=== PATIENT | female | born 1990 | race Caucasian/White ===

== ENCOUNTER 2021-07-07 06:04 | Emergency (ER) | payer OTHER, SELFPAY ==
[2021-07-07] VITALS (8 sets, daily range): BP systolic 103–120; BP diastolic 62–79; PULSE 76–96; RESP 12–20; TEMP 36.9; O2SAT 99–100
--- NOTE | ~2021-07-07 | XR_ITS ---
EXAMINATION: XR chest 2V DATE: 07/07/2021 06:32 INDICATION: Left-sided midsternal chest pain TECHNIQUE: PA and lateral views of the chest were obtained. COMPARISON: Chest radiograph dated 06/11/2018 FINDINGS: The lungs are clear with no focal airspace opacities, pulmonary edema, pleural effusion or pneumothor ax. The cardiomediastinal silhouette is normal. Visualized bones and soft tissues are unremarkable. IMPRESSION: 1. Normal chest radiograph. Reviewed, dictated and finalized at location A. IMPRESSION: 1. Normal chest radiograph.
--- NOTE | 2021-07-07 06:06 | ECG_ITS ---
Measurements Intervals [place] Rate: 85 P: 52 ME: 178 QRS: 57 QRSD: 82 T: 25 QT: 353 QTc: 420 Interpretive Statements SINUS RHYTHM NORMAL ECG Electronically Signed On 07-07-2021 7:06:19 CDT by Forrest Turcios D.O.
--- NOTE | 2021-07-07 06:27 | PC.NURSE ---
Pt to imaging at this time.
[2021-07-07 06:53] LABS: Basophils Absolute Auto 0.1 K/mm3 (0.0-0.1); Basophils Percent Auto 0.9 % (0.2-1.2); Eosinophils Absolute Auto 0.3 K/mm3 (0-0.3); Eosinophils Percent Auto 4.9 % (0-4.4); Hematocrit 49.6 % (37.0-47.0); Hemoglobin 16.5 g/dL (12.0-15.0); Immature Granulocyte Absolute 0.01 K/mm3 (0.00-0.031); Immature Granulocyte Percent A 0.1 % (0-0.5); Lymphocytes Absolute Auto 2.96 K/mm3 (0.9-3.2); Mean Corpuscular HGB Conc 33.3 g/dl (32-36); Mean Corpuscular Hemoglobin 28.5 pg (26-34); Mean Corpuscular Volume 85.8 fl (80-100); Mean Platelet Volume 10.9 fl (7.4-10.4); Monocytes Absolute Auto 0.5 K/mm3 (0.1-0.6); Monocytes Percent Auto 7.1 % (2.6-8.5); Platelet Count Result 240 k/mm3 (150-375); Red Blood Count 5.78 M/mm3 (4.2-5.4); Red Cell Distribution Width 12.5 % (11.5-14.5); White Blood Count 6.9 K/mm3 (4.5-10.0)
[2021-07-07 07:00] LABS: Anion Gap 7 mmol/L (8-16); Blood Urea Nitrogen 15 mg/dL (7-17); Calcium 9.7 mg/dL (8.4-10.2); Carbon Dioxide 27 mmol/L (22-30); Chloride 106 mmol/L (98-107); Estimated CRCL calculation 81 ml/min; Estimated Glomerular Filt Rate > 60; Glucose 94 mg/dL (65-110); Potassium 3.5 mmol/L (3.4-5.0); Sodium 140 mmol/L (137-145)
[2021-07-07 07:02] LABS: INR 0.8; Prothrombin Time 11.3 Seconds (11.1-14.7)
[2021-07-07 07:13] LABS: Troponin I < 0.012 ng/mL (0.000-0.034)
--- NOTE | 2021-07-07 07:28 | ED.CHESTPAIN ---
HPI - Chest Pain General Chief Complaint: Chest Pain Stated Complaint: chest pains Time Seen by Provider: 07/07/21 07:04 Source: patient and RN notes reviewed Mode of arrival: ambulatory Limitations: no limitations History of Present Illness HPI narrative: This is a 31 year old female with history of anxiety who presents for evaluation of chest pain. Patient reports she has been waking up with chest pain all week. She reports sharp pain located left anterior chest and midsternal. She normally takes Xanax 0.25 mg in the morning, and this makes her pain go away. Today she reports her pain was more severe but she did not take a Xanax today. She denies associated shortness of breath, nausea, vomiting, cough or fever. She denies leg swelling or pain. She reports pain 04/19. Related Data Home Medications Medication Instructions Recorded Confirmed norethindrone-e.estradiol-iron tablet 07/07/21 [Aurovela Fe 1-20 (28)] Allergies Allergy/AdvReac Type Severity Reaction Status Date / Time sulfamethoxazole AdvReac Severe Nausea and Verified 07/07/21 06:15 Vomiting trimethoprim AdvReac Severe Nausea and Verified 07/07/21 06:15 Vomiting Review of Systems Review of Systems: All systems reviewed & are unremarkable except as noted in HPI and below PMFSH Past Medical History Medical History (Updated 07/07/21 @ 10:26 by Myriam Bradley MD) Anxiety disorder, unspecified BMI 24.0-24.9, adult Mixed irritable bowel syndrome Surgical History Surgical History (Updated 07/07/21 @ 07:30 by Myriam Bradley MD) No pertinent past surgical history Family History Family History Grandparent Hypertension Diabetes mellitus Social History Social History Smoking status: Never smoker Second hand tobacco smoke exposure: No Alcohol intake: current Substance use: never Substance use type: does not use Exam Const: General: no acute distress and alert Orientation/consciousness: patient oriented x3 Eyes: EOM: EOMs intact bilaterally Chest: Chest palpation & inspection: tenderness sternum and costochondral junction Resp: Effort & Inspection: normal respiratory effort and no retractions Auscultation: clear to auscultation bilaterally Cardio: Rate: regular rate Rhythm: regular rhythm Heart sounds: no murmurs GI: GI Palp: Yes Soft to palpation, No Tenderness to palpation present (GI) and No Guarding due to palpation present (GI) Auscultation: normal bowel sounds Skin: General skin exam: normal color Rashes: no rashes Neuro: General: patient oriented x3, moves all extremities and CN's II-XI intact bilaterally Psych: Appearance: grossly normal and well kempt Mental Status: mental status grossly normal Affect: normal affect Course Reevaluation(s) Reevaluation #1: Patient states she feels much better. I discussed her evaluation has been unremarkable in ER . She will follow up with PCP. Date: 07/07/21 Time: 10:24 Vital Signs Vital signs: Vital Signs Temperature 98.5 F 07/07/21 06:08 Pulse Rate 93 07/07/21 06:08 Respiratory Rate 16 07/07/21 06:08 Blood Pressure 120/79 07/07/21 06:08 Pulse Oximetry 100 07/07/21 06:08 Temperature 98.5 F 07/07/21 06:08 Pulse Rate 78 07/07/21 10:38 Respiratory Rate 20 07/07/21 10:38 Blood Pressure 108/70 07/07/21 10:38 Pulse Oximetry 99 07/07/21 10:38 MDM - Chest Pain Lab Data Attestation: I reviewed the patient's lab results. Result diagrams: 07/07/21 06:42 07/07/21 06:42 Labs: Lab Results 07/07/21 07/07/21 07/07/21 Range/Units 06:42 06:42 06:42 WBC 6.9 (4.5-10.0) K/mm3 RBC 5.78 H (4.2-5.4) M/mm3 Hgb 16.5 H (12.0-15.0) g/dL Hct 49.6 H (37.0-47.0) % MCV 85.8 (80-100) fl MCH 28.5 (26-34) pg MCHC 33.3 (32-36) g/dl RDW 12.5
[2021-07-07] MEDS: KETOROLAC 15 MG/ML VIAL (*BKC) IV PUSH (07:34)
[2021-07-07] MEDS: ALPRAZolam (*CRX) 0.25 MG TABLET PO (07:35)
[2021-07-07 07:39] LABS: Partial Thromboplastin Time 23.4 SECONDS (22.3-36.8)
--- NOTE | 2021-07-07 07:53 | PC.NURSE ---
Spoke to Nicolasa in lab at 07:54 to add on D Dimer
[2021-07-07 08:05] LABS: D Dimer 0.29 ug/mL (<0.48)
[2021-07-07 10:09] LABS: Troponin I < 0.012 ng/mL (0.000-0.034)
== END 2021-07-07 10:39 | disposition home or self-care (01) ==
PROVIDERS: Emergency Medicine; Emergency Provider General Practice; PCP Family Medicine
DX: R07.89 Other chest pain (principal); K58.2 Mixed irritable bowel syndrome; F41.9 Anxiety disorder, unspecified
CPT/HCPCS: 36415; 71046; 80048; 84484; 85025; 85380; 85610; 85730; 93005; 96374; 99284; A9270; J1885

== ENCOUNTER 2021-07-17 15:35 | Emergency (ER) | payer OTHER, SELFPAY ==
[2021-07-17 15:44] VITALS: BP 106/82; PULSE 101; RESP 18; TEMP 36.4; O2SAT 100
--- NOTE | 2021-07-17 16:17 | ED.FEMALEGU ---
HPI - Female Genitourinary General Chief complaint: Urogenital-Female Stated complaint: UTI Source: patient and RN notes reviewed Limitations: no limitations History of Present Illness HPI Narrative: The patient, who is on several mood meds, presents with urinary symptoms. Patient states she has a shorter, 1 morning history of urinary frequency and dysuria. No fever, low back pain, vomiting, blood, urgency, vaginal discharge-she declines STI testing and risk factors. Symptoms are mild, most noticeable with micturition Related Data Home Medications Medication Instructions Recorded Confirmed norethindrone-e.estradiol-iron 1 tablet PO DAILY 07/07/21 07/17/21 [Aurovela Fe 1-20 (28)] topiramate 50 mg PO PRN PRN 07/17/21 07/17/21 Allergies Allergy/AdvReac Type Severity Reaction Status Date / Time sulfamethoxazole AdvReac Severe Nausea and Verified 07/17/21 15:52 Vomiting trimethoprim AdvReac Severe Nausea and Verified 07/17/21 15:52 Vomiting Review of Systems Review of Systems: General/Constitutional: No weight loss,fever Eyes: N0: Redness,discharge Ears/Nose/Throat: No: Epistaxis,ear discharge Respiratory: Denies: Hemoptysis Gastrointestinal: No Vomiting, Bleeding-rectal Skin: No Lumps, eruption Neurologic: No Focal Weakness,Sz Hematologic: Denies: Petechiae/Purpura Psychiatric: No: Suicida ideationl All Other Systems: Reviewed and Negative [facility], [facility] Past Medical History Medical History Anxiety disorder, unspecified BMI 24.0-24.9, adult Mixed irritable bowel syndrome Surgical History Surgical History No pertinent past surgical history Family History Family History Grandparent Hypertension Diabetes mellitus Social History Social History Second hand tobacco smoke exposure: No Alcohol intake: current Drinks per week: 2 Substance use: never Substance use type: does not use Gender identity (if verbalized by the patient): Female Sexual Orientation (if Verbalized by the Patient): Straight or Heterosexual Spiritual care concerns: No Agree to blood products: Yes Comments At time of signature, agree with nursing past medical, surgical, social and family history. There is no relevant family history pertinent to the presenting complaint Exam Narrative: General Appearance: Well appearing, No distress EYE: PERRLA, Conjunctiva clear Ears: External ear normal Nose: Normal nose Mouth/Throat: Normal appearing, Normal lips Neck: Supple Respiratory: Airway patent, No respiratory distress Cardiovascular: RRR Abdomen: Soft, Non-tender, Musculoskeletal: Full ROM Skin: Warm, Dry Neurological: A&O x3, CN II-X intact Psychiatric: Normal mood, Normal affect Course Vital Signs Vital signs: Vital Signs Temperature 97.6 F 07/17/21 15:44 Pulse Rate 101 H 07/17/21 15:44 Respiratory Rate 18 07/17/21 15:44 Blood Pressure 106/82 07/17/21 15:44 Pulse Oximetry 100 07/17/21 15:44 Temperature 97.6 F 07/17/21 15:44 Pulse Rate 101 H 07/17/21 15:44 Respiratory Rate 18 07/17/21 15:44 Blood Pressure 106/82 07/17/21 15:44 Pulse Oximetry 100 07/17/21 15:44 MDM - Female Genitourinary Lab Data Labs: Urine Glucose Negative Reference Range: Negative Urine Bilirubin Negative Reference Range: Negative Urine Ketone Negative Reference Range: Negative Urine Specific [place] 1.025 Reference Range:1.001-1.035 Urine Blood Negative
== END 2021-07-17 16:26 | disposition home or self-care (01) ==
PROVIDERS: Emergency Provider Emergency Medicine; PCP Family Medicine
DX: N30.90 Cystitis, unspecified without hematuria (principal)
CPT/HCPCS: 81003; 99213; G0463

== ENCOUNTER 2022-11-05 10:08 | Emergency (ER) | payer OTHER, SELFPAY ==
[2022-11-05 10:23] VITALS: BP 133/74; PULSE 113; RESP 20; TEMP 36.9; O2SAT 100
[2022-11-05 11:01] LABS: Basophils Absolute Auto 0.1 K/mm3 (0.0-0.1); Basophils Percent Auto 0.7 % (0.2-1.2); Eosinophils Absolute Auto 0.3 K/mm3 (0-0.3); Hematocrit 47.9 % (37.0-47.0); Hemoglobin 15.8 g/dL (12.0-15.0); Immature Granulocyte Absolute 0.03 K/mm3 (0.00-0.031); Immature Granulocyte Percent A 0.3 % (0-0.5); Lymphocytes Absolute Auto 2.66 K/mm3 (0.9-3.2); Lymphocytes Percent Auto 25.7 % (18.3-44.2); Mean Corpuscular Hemoglobin 28.6 pg (26-34); Mean Corpuscular Volume 86.8 fl (80-100); Mean Platelet Volume 10.3 fl (7.4-10.4); Monocytes Absolute Auto 0.4 K/mm3 (0.1-0.6); Neutrophils Absolute Auto 6.9 K/mm3 (1.3-6.7); Neutrophils Percent Auto 66.3 % (45.5-73.1); Platelet Count Result 233 k/mm3 (150-375); Red Blood Count 5.52 M/mm3 (4.2-5.4); Red Cell Distribution Width 13.6 % (11.5-14.5); White Blood Count 10.4 K/mm3 (4.5-10.0)
[2022-11-05 11:12] LABS: Alanine Aminotransferase 56 U/L (6-35); Albumin Level 4.7 g/dL (3.5-5.1); Alkaline Phosphatase 91 U/L (38-126); Anion Gap 4 mmol/L (8-16); Aspartate Amino Transferase 84 U/L (14-36); Bilirubin,Total 0.4 mg/dL (0.2-1.3); Blood Urea Nitrogen 13 mg/dL (7-17); Calcium 9.1 mg/dL (8.4-10.2); Carbon Dioxide 29 mmol/L (22-30); Chloride 101 mmol/L (98-107); Estimated CRCL calculation 66 ml/min; Estimated Glomerular Filt Rate 58; Glucose 89 mg/dL (65-110); Lipase 97 U/L (23-300); Potassium 3.5 mmol/L (3.4-5.0); Sodium 134 mmol/L (137-145)
[2022-11-05 11:27] LABS: Add Urine Microscopic? YES; Appearance Urine Slightly Cloudy (Clear); Bilirubin Urine 1+ (Negative); Blood Urine Negative (Negative); Color Urine Light Yellow (Yellow); Glucose Urine UA Negative (Negative); Ketones Urine 2+ mg/dL (Negative); Leukocyte Esterase Ur Trace LEU/UL (Negative); Nitrate Urine Negative (Negative); Protein Urine Negative (Negative); Urobilinogen Urine 0.2 mg/dL (<2.0)
[2022-11-05 11:29] LABS: Bacteria Urine Trace /hpf; Mucus Urine Rare /lpf; RBC Urine 0-2 /hpf (0-2); Squamous Epithelial Cell Urine Many /hpf (Few); WBC Urine 0-3 /hpf
--- NOTE | 2022-11-05 13:07 | PC.NURSE ---
pt. family member up to front end developer x2 reporting pt. pain with terrible. pt. family states we keep seeing people pulled back before her and we were here first. RN educated pt. family member triage is not based off of first come first sever. Pt. family member walked away and reported to daughter they don't care Pt. ambulated out of ed w. steady gait, no signs of distress.
== END 2022-11-05 13:36 | disposition left against medical advice (07) ==
PROVIDERS: Emergency Provider Family Medicine; PCP Family Medicine
DX: R10.9 Unspecified abdominal pain (principal)
CPT/HCPCS: 36415; 80053; 81001; 81025; 83690; 85025; 99199

== ENCOUNTER 2023-05-28 11:21 | Emergency (ER) | payer OTHER, SELFPAY ==
[2023-05-28 11:29] VITALS: BP 106/75; PULSE 103; RESP 16; TEMP 35.9; O2SAT 100
--- NOTE | 2023-05-28 11:50 | ED.SKABFB ---
HPI - Skin/Abscess/Foreign Bdy General Chief complaint: Eye Problems Stated complaint: Rt Eye Irritation Time Seen by Provider: 05/28/23 11:38 Source: patient and RN notes reviewed Mode of arrival: ambulatory Limitations: no limitations History of Present Illness HPI narrative: Patient presents today complaining a painful bump below the medial aspect of her right eyebrow x2 weeks that has progressively gotten larger, more red and painful. She has been applying ice without relief. She currently rates her pain 10. Related Data Allergies Allergy/AdvReac Type Severity Reaction Status Date / Time sulfamethoxazole AdvReac Intermediate Nausea and Verified 05/28/23 11:29 Vomiting trimethoprim AdvReac Intermediate Nausea and Verified 05/28/23 11:29 Vomiting Review of Systems Review of Systems: CONSTITUTIONAL: Denies body aches, fever, chills, or sweats. EYES: Denies visual changes, redness, or discharge. ENT: Denies rhinorrhea, congestion, sore throat, or otalgia. CARDIOVASCULAR: Denies chest pain, palpitations, or edema. RESPIRATORY: Denies cough or dyspnea. GASTROINTESTINAL: Denies abdominal pain, nausea, vomiting, or diarrhea. GENITOURINARY: Denies dysuria or hematuria. SKIN: + lump to right eyebrow MUSCULOSKELETAL: Denies back pain, joint pain, or myalgia. NEUROLOGIC: Denies headache, numbness, tingling, or weakness. PSYCH: Denies depression or anxiety. [facility] Past Medical History Medical History Anxiety disorder, unspecified BMI 24.0-24.9, adult COVID-19 Mixed irritable bowel syndrome Surgical History Surgical History No pertinent past surgical history Family History Family History Grandparent Hypertension Diabetes mellitus Father Diabetes mellitus COVID-19 Mother Migraine headache COVID-19 Sibling COVID-19 Social History Social History Smoking status: Never smoker Second hand tobacco smoke exposure: No Alcohol intake: current Drinks per week: 2 Substance use: never Substance use type: does not use Living arrangements: with family 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 Please see nursing chart for further information. There is no relevant family history pertinent to the presenting complaint Exam Narrative: GENERAL: Well-appearing, well-nourished, and in no acute distress. HEAD: Normocephalic, atraumatic. EYES: EOMI. No redness or drainage. Conjunctivae normal. ENT: Mucous membranes pink and moist. NECK: Normal AROM. CHEST: No respiratory distress. EXTREMITIES: Normal range of motion. No edema. SKIN: Warm, dry, no rash. Capillary refill normal. Normal skin turgor. 0.5 cm round fluctuant nodule below the medial aspect of the right eyebrow with surrounding erythema and induration. Tender palpation. NEURO: No focal deficits. Alert and oriented x3. Gait steady. PSYCH: Normal affect. No signs of depression or anxiety. Course Course Level of Care: Express Care Visit Vital Signs Vital signs: Vital Signs Temperature 96.7 F L 05/28/23 11:29 Pulse Rate 103 H 05/28/23 11:29 Respiratory Rate 16 05/28/23 11:29 Blood Pressure 106/75 05/28/23 11:29 Pulse Oximetry 100 05/28/23 11:29 Oxygen Delivery Room Air 05/28/23 11:29 Temperature 96.7 F L 05/28/23 11:29 Pulse Rate 103 H 05/28/23 11:29 Respiratory Ra
== END 2023-05-28 11:56 | disposition home or self-care (01) ==
PROVIDERS: Emergency Provider Nurse Practitioner; PCP Family Medicine
DX: L02.01 Cutaneous abscess of face (principal); Z86.16 Personal history of COVID-19
CPT/HCPCS: 10060; 99213; G0463

== ENCOUNTER 2023-07-25 13:49 | Emergency (ER) | payer OTHER, SELFPAY ==
[2023-07-25 13:56] VITALS: BP 115/68; PULSE 103; RESP 18; TEMP 36.5; O2SAT 100
--- NOTE | 2023-07-25 14:09 | ED.URI ---
HPI - URI/Sore Throat General Chief Complaint: Upper Respiratory Infection Stated Complaint: Sore Throat Time Seen by Provider: 07/25/23 14:09 Source: patient Mode of arrival: ambulatory Limitations: no limitations History of Present Illness HPI Narrative: 33-year-old female presents with complaint of sore throat, headache, fatigue, body aches for 2-3 days. Highest fever 102 F. Denies nausea vomiting diarrhea. All systems reviewed and negative except as noted above. Related Data Allergies Allergy/AdvReac Type Severity Reaction Status Date / Time sulfamethoxazole AdvReac Intermediate Nausea and Verified 07/25/23 14:16 Vomiting trimethoprim AdvReac Intermediate Nausea and Verified 07/25/23 14:16 Vomiting Review of Systems Review of Systems: CONSTITUTIONAL: reports fever, chills, or sweats. EYES: Denies visual changes, redness, or discharge. ENT: Denies rhinorrhea, congestion . Reports sore throat. Denies otalgia. CARDIOVASCULAR: Denies chest pain, palpitations, or edema. RESPIRATORY: Denies cough or dyspnea. GASTROINTESTINAL: Denies abdominal pain, nausea, vomiting, or diarrhea. GENITOURINARY: Denies dysuria or hematuria. SKIN: Denies rash or itching. MUSCULOSKELETAL: Denies back pain, joint pain, or myalgia. NEUROLOGIC: Denies headache, numbness, or weakness. PSYCHIATRIC: Denies anxiety or depression. All other systems reviewed are negative, except as documented in HPI. [facility] Past Medical History Medical History Anxiety disorder, unspecified BMI 24.0-24.9, adult COVID-19 Mixed irritable bowel syndrome Surgical History Surgical History No pertinent past surgical history Family History Family History Grandparent Hypertension Diabetes mellitus Father Diabetes mellitus COVID-19 Mother Migraine headache COVID-19 Sibling COVID-19 Social History Social History Smoking status: Never smoker Second hand tobacco smoke exposure: No Alcohol intake: current Drinks per week: 2 Substance use: never Substance use type: does not use Living arrangements: with family Occupation/Education: occupation 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 There is no relevant family history pertinent to the presenting complaint. Exam Narrative: GENERAL: This is a well-nourished, well-developed patient, in no apparent distress. HEAD: normocephalic, atraumatic. EYES: PERRL. Sclera clear/white. Vision is grossly intact. EARS: External ears normal, auditory canals clear and without drainage, TMs normal without perforation. Hearing grossly intact. NOSE: External nose normal with no obvious nasal discharge, nares without redness, no rhinorrhea. THROAT: Mucous membranes moist, mild erythema to posterior pharynx without swelling or exudates. NECK: Neck supple, non-tender without lymphadenopathy, masses or thyromegaly. CARDIOVASCULAR: Regular rate and rhythm without murmurs, gallops, or rubs. RESPIRATORY: Clear to auscultation. Breath sounds equal bilaterally. No wheezes, rales, or rhonchi. \ SKIN: warm, Dry, intact with no suspicious lesions or rash, good texture and turgor. NEURO: awake, alert, and oriented to person, place and time. There were no obvious focal neurologic abnormalities. EXTREMITIES: No joint tenderness, effusion, or edema noted. Course Course Level of Care: Express Care Visit Vital Signs Vital signs: Vital Signs Temper
== END 2023-07-25 14:34 | disposition home or self-care (01) ==
PROVIDERS: Emergency Provider Nurse Practitioner Family; PCP Family Medicine
DX: J02.0 Streptococcal pharyngitis (principal)
CPT/HCPCS: 87880; 99213; G0463

== ENCOUNTER 2024-03-24 10:10 | Emergency (ER) | payer OTHER, SELFPAY ==
--- NOTE | ~2024-03-24 | XR_ITS ---
EXAMINATION: XR chest 2V DATE: 03/24/2024 10:39 INDICATION: Chest pain TECHNIQUE: PA and lateral views of the chest were obtained. COMPARISON: Chest radiograph dated 07/07/2021 FINDINGS: The lungs are clear with no focal airspace opacities, pulmonary edema, pleural effusion or pneumothor ax. The cardiomediastinal silhouette is normal. Visualized bones and soft tissues are unremarkable. IMPRESSION: 1. No acute cardiopulmonary disease. Reviewed, dictated and finalized at location A.
--- NOTE | 2024-03-24 10:12 | ECG_ITS ---
SEE SCANNED COPY FOR CONFIRMED REPORT MTDD
[2024-03-24 10:15] VITALS: BP 118/80; PULSE 110; RESP 18; TEMP 36.4; O2SAT 100
[2024-03-24 10:35] LABS: Basophils Absolute Auto 0.1 K/mm3 (0.0-0.1); Basophils Percent Auto 0.6 % (0.2-1.2); Eosinophils Absolute Auto 0.4 K/mm3 (0-0.3); Eosinophils Percent Auto 3.7 % (0-4.4); Hematocrit 47.4 % (37.0-47.0); Hemoglobin 15.4 g/dL (12.0-15.0); Immature Granulocyte Absolute 0.02 K/mm3 (0.00-0.031); Immature Granulocyte Percent A 0.2 % (0-0.5); Lymphocytes Percent Auto 27.5 % (18.3-44.2); Mean Corpuscular HGB Conc 32.5 g/dl (32-36); Mean Corpuscular Hemoglobin 28.6 pg (26-34); Mean Corpuscular Volume 87.9 fl (80-100); Mean Platelet Volume 10.7 fl (7.4-10.4); Monocytes Absolute Auto 0.6 K/mm3 (0.1-0.6); Monocytes Percent Auto 5.8 % (2.6-8.5); Neutrophils Absolute Auto 6.1 K/mm3 (1.3-6.7); Neutrophils Percent Auto 62.2 % (45.5-73.1); Platelet Count Result 224 k/mm3 (150-375); Red Blood Count 5.39 M/mm3 (4.2-5.4); Red Cell Distribution Width 13.6 % (11.5-14.5); White Blood Count 9.8 K/mm3 (4.5-10.0)
[2024-03-24 11:00] LABS: INR 0.9; Prothrombin Time 12.9 Seconds (11.1-14.7)
[2024-03-24 11:01] LABS: Partial Thromboplastin Time 29.2 Seconds (22.3-36.8)
[2024-03-24 11:02] LABS: Alanine Aminotransferase 30 U/L (6-35); Albumin Level 4.5 g/dL (3.5-5.1); Alkaline Phosphatase 78 U/L (38-126); Anion Gap 6 mmol/L (4-12); Aspartate Amino Transferase 39 U/L (14-36); Bilirubin,Total 0.5 mg/dL (0.2-1.3); Blood Urea Nitrogen 15 mg/dL (7-17); Calcium 9.4 mg/dL (8.4-10.2); Carbon Dioxide 27 mmol/L (22-30); Chloride 105 mmol/L (98-107); Estimated CRCL calculation 85 ml/min; Estimated Glomerular Filt Rate > 60; Glucose 100 mg/dL (65-110); Lipase 126 U/L (23-300); Potassium 4.3 mmol/L (3.4-5.0); Sodium 138 mmol/L (137-145)
[2024-03-24 11:13] LABS: Troponin I < 0.012 ng/mL (0.000-0.034)
[2024-03-24 11:29] LABS: D Dimer 0.35 ug/mL (<0.48)
[2024-03-24 11:45] VITALS: BP 107/67; PULSE 84; RESP 16; TEMP 36.6; O2SAT 97
--- NOTE | 2024-03-24 11:45 | PC.NURSE ---
assumed care of pt from ryan del real. pt resting in stretcher, visitor at bedside. pt c/o 04/19 cp. updated on current status: waiting on additional lab work. pt verbalized no concerns at this time
--- NOTE | 2024-03-24 11:46 | ED.GENADULT ---
HPI - General Adult General Chief complaint: Chest Pain Stated complaint: chest pain Time Seen by Provider: 03/24/24 10:34 History of Present Illness HPI narrative: Celina Prabhakar is a 33 y/o female who presents today with reports of chest pain that started Friday- she states that it woke her up out of her sleep. CP is constant pressure over her left side of chest with intermittent sharp shooting pain on her left side of chest Denies SOB Denies any known Cardiac Hx, she states that she has had chest pain before and it usually is related to her anxiety and she took her xanax and it did not help her pain. Denies fever/ cough/ SOB/ sore throat/ nausea /vomiting Related Data Allergies Allergy/AdvReac Type Severity Reaction Status Date / Time sulfamethoxazole AdvReac Intermediate Nausea and Verified 03/18/24 14:15 Vomiting trimethoprim AdvReac Intermediate Nausea and Verified 03/18/24 14:15 Vomiting Review of Systems Review of Systems: CONSTITUTIONAL: Denies fever, chills, or sweats. EYES: Denies visual changes, redness, or discharge. ENT: Denies rhinorrhea, congestion, sore throat, or otalgia. CARDIOVASCULAR: + chest pain that is constant pressure to her left chest with intermittent sharp shooting left side chest pain RESPIRATORY: Denies cough or dyspnea. GASTROINTESTINAL: Denies abdominal pain, nausea, vomiting, or diarrhea. GENITOURINARY: Denies dysuria or hematuria. SKIN: Denies rash or itching. MUSCULOSKELETAL: Denies back pain, joint pain, or myalgia. NEUROLOGIC: Denies headache, numbness, dizziness, or weakness. PSYCHIATRIC: Denies anxiety or depression. [facility] Past Medical History Medical History BMI 24.0-24.9, adult COVID-19 Mixed irritable bowel syndrome Screening for cholesterol level Screening for thyroid disorder Wellness examination Surgical History Surgical History No pertinent past surgical history Family History Family History Grandparent Hypertension Diabetes mellitus Father Diabetes mellitus COVID-19 Mother Migraine headache COVID-19 Sibling COVID-19 Social History Social History Smoking status: Never smoker Second hand tobacco smoke exposure: No Alcohol intake: current Drinks per week: 2 Substance use: never Substance use type: does not use Do You Feel Safe in your Home?: Yes Lack of Transportation: No Lack of Food: Never True Current Housing: I Have Housing Concerned About Future Housing: No Difficulty Paying Gas/Electric Bills: No Difficulty Paying for Meds: No Currently Unemployed: No Education: Bachelor's Degree Difficulty w/ Childcare or Family Care: No Living arrangements: with family Occupation/Education: occupation 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 HEAD: Normocephalic, atraumatic. EYES: PERRLA and EOMI. ENT: Nares clear, no rhinorrhea or epistaxis. Mucous membranes moist. Oropharynx without tonsillar hypertrophy exudate or other lesions. NECK: Supple. No adenopathy or masses. No carotid bruits or JVD CHEST: Clear to auscultation. No respiratory distress. No wheezes rales or rhonchi HEART: Regular rate and rhythm. No murmur heard. Normal peripheral pulses. ABDOMEN: Soft, nontender, nondistended, normal active bowel sounds. EXTREMITIES: Normal range of motion. No edema. SKIN: Warm, dry, no rash. NEURO: No focal deficits. Alert and oriented x3. PSYCH: Normal mood and affect. Course Vital Signs Vital signs
[2024-03-24 13:07] VITALS: BP 107/71; PULSE 87; RESP 16; TEMP 36.8; O2SAT 100
[2024-03-24 14:10] LABS: Troponin I < 0.012 ng/mL (0.000-0.034)
[2024-03-24 14:37] VITALS: BP 118/82; PULSE 82; RESP 14; TEMP 36.4; O2SAT 97
[2024-03-24] MEDS: KETOROLAC 30 MG/ML VIAL (*BKC) IV PUSH (14:37)
[2024-03-24 15:03] VITALS: BP 108/74; PULSE 93; RESP 16; TEMP 36.4; O2SAT 98
== END 2024-03-24 15:05 | disposition home or self-care (01) ==
PROVIDERS: Emergency Medicine; Emergency Provider Nurse Practitioner Family; PCP Family Medicine
DX: R07.89 Other chest pain (principal)
CPT/HCPCS: 36415; 71046; 80053; 83690; 84484; 85025; 85380; 85610; 85730; 93005; 96374; 99284; J1885